=== PATIENT | female | born 1985 | race Caucasian/White ===

== ENCOUNTER → 2016-09-07 | Outpatient (CLI) | payer BC, OTHER ==
[2016-09-07 13:39] LABS: BASO % 0.3 % (0.0-1.0); EOS % 0.4 % (0.0-3.0); LARGE UNSTAINED CELL # 0.1 K/mm3 (0.0-0.4); LYMPH # 1.8 K/mm3 (1.5-4.5); LYMPH % 19.2 % (24.0-44.0); MEAN CORPUSCULAR HEMOGLOBIN 31.5 pg (27.0-33.0); MEAN CORPUSCULAR HGB CONC 34.3 g/dl (32.0-36.5); MEAN CORPUSCULAR VOLUME 91.9 fl (80.0-96.0); MONO # 0.3 K/mm3 (0.0-0.8); MONO % 3.2 % (0.0-5.0); NEUTROPHILS % 75.9 % (36.0-66.0); PLATELET COUNT, AUTOMATED 149 k/mm3 (150-450); RED CELL DISTRIBUTION WIDTH 11.7 % (11.5-14.5); WHITE BLOOD COUNT 9.3 K/mm3 (4.0-10.0)
[2016-09-07 13:57] LABS: HBsAg Prenatal NEGATIVE (NEGATIVE)
== END ==
LOC: M WUC 09:27
PROVIDERS: ATTEND Advanced Practice Midwife
DX: Z34.81 Encounter for supervision of other normal pregnancy, first trimester (principal)

== ENCOUNTER → 2016-11-11 | Outpatient (REF) | payer OTHER | LOC: M LAB REF 10:02 | PROVIDERS: ATTEND Specialist | DX: Z36.89 Encounter for other specified antenatal screening (principal); Z3A.00 Weeks of gestation of pregnancy not specified ==

== ENCOUNTER → 2016-11-24 | Outpatient (CLI) | payer OTHER, BC ==
--- NOTE | 2016-11-25 05:13 | REP ---
Clinical: Anatomical evaluation. Comparison: None . Findings: Examination demonstrates a single live intrauterine in variable presentation. motion is identified by technologist. Placenta is noted posteriorly and grade zero without evidence for placenta previa or abruption. Amniotic fluid volume is normal. Cervix measures 4.1 cm in length and appears closed. No evidence for nuchal cord. Gestational age by LMP 19 weeks 0 days with YOUSIF 04/20/2017 . Gestational age by current measurements 19 weeks 4 days with YOUSIF 04/16/2017 . FHR equals 157 beats per minute. BPD 4.7 cm 20 weeks 2 days HC 17.1 cm 19 weeks 5 days AC 13.9 cm 19 weeks 2 days FL 3.1 cm 19 weeks 4 days HL 2.9 cm 19 weeks 4 days HC/AC ratio 1.23 Estimated weight 296 grams ( 66th percentile). Anatomical assessment demonstrates normal structures including cranium, choroid plexus, cavum, cerebellum/posterior fossa, facial features, lungs, four-chamber heart/ventricular outflow tracts, diaphragm, stomach, cord insertion/three-vessel cord, kidneys/bladder, spine, and extremities. Impression: Single live intrauterine in variable presentation demonstrating appropriate interval growth. Anatomical assessment is complete and normal. No gross abnormalities are identified. Signed by Kev Rubin MD 11/25/2016 05:05 A
== END ==
LOC: M SMT 07:54
PROVIDERS: ATTEND Specialist
DX: Z34.80 Encounter for supervision of other normal pregnancy, unspecified trimester (principal)

== ENCOUNTER → 2017-01-23 | Outpatient (CLI) | payer BC, OTHER ==
[2017-01-23 11:25] LABS: BASO % 0.3 % (0.0-1.0); EOS # 0.1 10^3/uL (0.0-0.50); EOS % 0.5 % (0.0-3.0); IMMATURE GRANULOCYTE % 0.7 % (0-0); LYMPH # 1.8 10^3/uL (1.5-4.5); LYMPH % 16.5 % (24.0-44.0); MEAN CORPUSCULAR HEMOGLOBIN 31.8 pg (27.0-33.0); MEAN CORPUSCULAR HGB CONC 34.1 g/dl (32.0-36.5); MEAN CORPUSCULAR VOLUME 93.2 fl (80.0-96.0); MONO # 0.5 10^3/uL (0.0-0.8); MONO % 4.7 % (0.0-5.0); NEUTROPHILS # 8.2 10^3/uL (1.8-7.7); NEUTROPHILS % 77.3 % (36.0-66.0); PLATELET COUNT, AUTOMATED 154 10^3/uL (150-450); RED CELL DISTRIBUTION WIDTH 12.5 % (11.5-14.5); WHITE BLOOD COUNT 10.6 10^3/uL (4.0-10.0)
== END ==
LOC: M SMT 08:57
PROVIDERS: ATTEND Advanced Practice Midwife
DX: Z34.83 Encounter for supervision of other normal pregnancy, third trimester (principal); Z3A.00 Weeks of gestation of pregnancy not specified

== ENCOUNTER → 2017-03-28 | Outpatient (REF) | payer BC, OTHER | LOC: M LAB REF 12:57 | DX: Z34.83 Encounter for supervision of other normal pregnancy, third trimester (principal) | CPT/HCPCS: 87081 ==

== ENCOUNTER 2017-04-10 06:22 | Inpatient (IN) | payer BC, OTHER ==
[2017-04-10] MEDS ORDERED: OXYTOCIN 30 UNITS IN 0.9% NaCl 500ML IV BAG (J2590) As Ordered (06:38)
[2017-04-10 07:57] LABS: HEMATOCRIT 35.4 % (36.0-47.0); HEMOGLOBIN 12.5 g/dl (12.0-16.0); MEAN CORPUSCULAR HEMOGLOBIN 32.2 pg (27.0-33.0); MEAN CORPUSCULAR HGB CONC 35.3 g/dl (32.0-36.5); MEAN CORPUSCULAR VOLUME 91.2 fl (80.0-96.0); PLATELET COUNT, AUTOMATED 115 10^3/uL (150-450); RED BLOOD COUNT 3.88 10^6/uL (4.00-5.40); RED CELL DISTRIBUTION WIDTH 12.4 % (11.5-14.5); WHITE BLOOD COUNT 18.8 10^3/uL (4.0-10.0)
[2017-04-10] MEDS ORDERED: ANUSOL HC CREAM 30GM TOP (08:15)
[2017-04-10] MEDS: OXYTOCIN INJ 10 UNITS/ML VIAL (J2590) IM (08:15)
[2017-04-10] MEDS ORDERED: METHYLERGONOVINE MALEATE 0.2 MG TAB PO (08:15)
[2017-04-10] MEDS ORDERED: MOM 30ML SUSPENSION UDC PO (08:15)
[2017-04-10] MEDS ORDERED: DOCUSATE SODIUM 100 MG CAP PO (08:15)
[2017-04-10] MEDS ORDERED: DIBUCAINE 1% OINTMENT 30GM TOP (08:15)
[2017-04-10] MEDS: PRENATAL VITAMINS CHEWABLE TABLET PO (10:36)
[2017-04-10] MEDS: IBUPROFEN 800 MG TAB PO (13:18)
[2017-04-10] MEDS: ACETAMINOPHEN 500 MG TAB PO (14:36)
[2017-04-10] MEDS: MEASLES,MUMPS,RUBELLA VACCINE INJ (MMR-II) (90707) SC (15:46)
[2017-04-10] MEDS: RHOGAM 300 MCG (1500 IU) INJ (J2790) IM (15:46)
[2017-04-11] MEDS: PRENATAL VITAMINS CHEWABLE TABLET PO (09:00)
== END 2017-04-11 13:10 | disposition home or self-care (01) | DRG 560 ==
LOC: M LDO 06:22 → M LDI 06:45 → M OBS 09:56
PROVIDERS: Obstetrics & Gynecology
PROC: 10E0XZZ Delivery of Products of Conception, External Approach (ICD-10-PCS; principal; 2017-04-10)
DX: O80 Encounter for full-term uncomplicated delivery (principal); Z37.0 Single live birth; Z3A.38 38 weeks gestation of pregnancy

== ENCOUNTER → 2019-12-19 | Outpatient (CLI) | payer SELFPAY ==
[~2019-12-19] MED LIST: IBUP-1114 PO; MAPA500T2 PO; PRENTAB9 PO
== END ==
LOC: M LABSMTC 13:28
PROVIDERS: ATTEND Pediatrics
DX: Z20.828 Contact with and (suspected) exposure to other viral communicable diseases (principal)

== ENCOUNTER 2019-12-29 20:28 | Emergency (ER) | payer OTHER, SELFPAY ==
[~2019-12-29] VITALS: Ht 152.4 cm; Wt 86.0 kg
[~2019-12-29 20:28] MED LIST changes: +RALTEGRAVIR 400 MG TAB (ISENTRESS) PO SCH; +TRUVADA 200MG/300MG TABLET PO SCH
[2019-12-29 20:31] VITALS: BP 120/72
[2019-12-29 21:58] LABS: BASO % 0.4 % (0.0-1.0); EOS # 0.1 10^3/uL (0.0-0.5); EOS % 0.6 % (0.0-3.0); HEMATOCRIT 36.9 % (36.0-47.0); HEMOGLOBIN 11.7 g/dl (12.0-15.5); LYMPH # 2.3 10^3/uL (1.5-5.0); LYMPH % 28.3 % (24.0-44.0); MEAN CORPUSCULAR HEMOGLOBIN 28.9 pg (27.0-33.0); MEAN CORPUSCULAR HGB CONC 31.7 g/dl (32.0-36.5); MEAN CORPUSCULAR VOLUME 91.1 fl (80.0-96.0); MONO # 0.4 10^3/uL (0.0-0.8); MONO % 5.5 % (0.0-5.0); NEUTROPHILS # 5.2 10^3/uL (1.5-8.5); NEUTROPHILS % 64.9 % (36.0-66.0); PLATELET COUNT, AUTOMATED 172 10^3/uL (150-450); RED BLOOD COUNT 4.05 10^6/uL (4.00-5.40)
[2019-12-29] MEDS ORDERED: EXPOSURE KIT-ADULT 7 DAY SUPPLY PO ONE (22:00)
[2019-12-29] MEDS ORDERED: BOOSTRIX/ADACEL VACCINE (DIPHTH/PERTUSS/ACELL/TETANUS) 0.5ML SYR IM ONE (22:00)
[2019-12-29] MEDS ORDERED: RALTEGRAVIR 400 MG TAB (ISENTRESS) PO ONE (22:15)
[2019-12-29] MEDS ORDERED: TRUVADA 200MG/300MG TABLET PO ONE (22:15)
[2019-12-29 22:29] LABS: HCG, SERUM QUALITATIVE NEGATIVE (NEGATIVE)
[2019-12-29 22:32] LABS: ALBUMIN 4.1 GM/DL (3.2-5.2); ALT/SGPT 17 U/L (12-78); BILIRUBIN,TOTAL 0.3 MG/DL (0.2-1.0); BLOOD UREA NITROGEN 17 MG/DL (7-18); CALCIUM LEVEL 9.2 MG/DL (8.5-10.1); CARBON DIOXIDE LEVEL 27 MEQ/L (21-32); CHLORIDE LEVEL 104 MEQ/L (98-107); GLOMERULAR FILTRATION RATE > 60.0 (>60); GLUCOSE, FASTING 102 MG/DL (70-100); SODIUM LEVEL 136 MEQ/L (136-145); TOTAL PROTEIN 7.4 GM/DL (6.4-8.2)
[2019-12-29] MEDS ORDERED: RALT40TA PO (22:45)
[2019-12-29] MEDS ORDERED: TRUVTAB PO (22:45)
[2019-12-29] MEDS ORDERED: ONDA4TAB6 PO (22:46)
[2019-12-29 23:25] LABS: HIV SCREEN CENTAUR EXPOSED NEGATIVE (NEGATIVE)
[2019-12-30 11:40] LABS: HEPATITIS B SURFACE ANTIBODY NEGATIVE (POSITIVE)
[2019-12-30 11:49] LABS: HEPATITIS B SURFACE ANTIGEN NEGATIVE (NEGATIVE)
== END 2019-12-29 22:48 | disposition home or self-care (01) ==
LOC: M ED 20:28
DX: S61.012A Laceration without foreign body of left thumb without damage to nail, initial encounter (principal); Z77.21 Contact with and (suspected) exposure to potentially hazardous body fluids; W26.8XXA Contact with other sharp object(s), not elsewhere classified, initial encounter; Y92.238 Other place in hospital as the place of occurrence of the external cause; Y93.F9 Activity, other caregiving; Y99.0 Civilian activity done for income or pay

== ENCOUNTER → 2020-10-06 | Outpatient (CLI) | payer BC, OTHER ==
[~2020-10-06] MED LIST changes: +EMTR1TAB16 PO; +ONDA4TAB6 PO; +RALT40TA PO; -RALTEGRAVIR 400 MG TAB (ISENTRESS) PO SCH; -TRUVADA 200MG/300MG TABLET PO SCH
[2020-10-06 17:12] LABS: HEMOGLOBIN A1c 5.6 %
== END ==
LOC: M LAB 16:28
PROVIDERS: ATTEND Student in an Organized Health Care Education/Training Program
DX: R20.2 Paresthesia of skin (principal)

== ENCOUNTER → 2022-06-02 | Outpatient (REF) | payer OTHER | LOC: M PLALAB 11:10 | PROVIDERS: ATTEND Nurse Practitioner Family | DX: Z12.4 Encounter for screening for malignant neoplasm of cervix (principal) | CPT/HCPCS: 87624; G0123 ==

== ENCOUNTER → 2023-12-20 | Outpatient (CLI) | payer BC ==
[~2023-12-20] MED LIST changes: +ONDA-282 PO; -ONDA4TAB6 PO
== END ==
LOC: M WHC 13:09
PROVIDERS: ATTEND Nurse Practitioner Family
DX: Z12.31 Encounter for screening mammogram for malignant neoplasm of breast (principal)

== ENCOUNTER → 2023-12-25 | Outpatient (CLI) | payer BC | LOC: M WHC 11:28 | PROVIDERS: ATTEND Nurse Practitioner Family | DX: Z12.31 Encounter for screening mammogram for malignant neoplasm of breast (principal) ==

== ENCOUNTER → 2024-08-09 | Outpatient (RCR) | LOC: M EMPSKH 07-15 14:30 | PROVIDERS: ATTEND Family Medicine | DX: Z11.59 Encounter for screening for other viral diseases (principal) ==

== ENCOUNTER → 2024-10-17 | Outpatient (CLI) | payer BC ==
[2024-10-17 11:12] LABS: BASO # 0.0 10^3/uL (0.0-0.2); BASO % 0.6 % (0.0-1.0); EOS # 0.1 10^3/uL (0.0-0.5); EOS % 0.9 % (0.0-3.0); LYMPH # 2.1 10^3/uL (1.5-5.0); LYMPH % 38.9 % (24.0-44.0); MONO # 0.4 10^3/uL (0.0-0.8); MONO % 6.6 % (2.0-8.0); NEUTROPHILS # 2.8 10^3/uL (1.5-8.5); NEUTROPHILS % 52.8 % (36.0-66.0); PLATELET COUNT, AUTOMATED 164 10^3/uL (150-450)
[2024-10-17 11:41] LABS: ALT/SGPT 23.0 U/L (7.0-40); AST/SGOT 22.0 U/L (<34); CALCIUM LEVEL 8.8 MG/DL (8.5-10.1); CARBON DIOXIDE LEVEL 26.0 MMOL/L (20-31); CHLORIDE LEVEL 104.0 MMOL/L (98-107); CHOLESTEROL LEVEL 295.0 MG/DL (<200); CHOLESTEROL RISK RATIO 4.01 (<5); CREATININE FOR GFR 1.0 MG/DL (0.55-1.30); FREE T4 1.1 NG/DL (0.89-1.76); GLOMERULAR FILTRATION RATE 73.0 (>58); LDL CHOLESTEROL 190.7 MG/DL (<100); NON-HDL-C 221.5 MG/DL; POTASSIUM SERUM 4.5 MMOL/L (3.5-5.1); SODIUM LEVEL 140.0 MMOL/L (136-145); TRIGLYCERIDES LEVEL 154.0 MG/DL (<150)
== END ==
LOC: M PLALAB 07:39
PROVIDERS: ATTEND Student in an Organized Health Care Education/Training Program
DX: Z00.00 Encounter for general adult medical examination without abnormal findings (principal)